=== PATIENT | male | born 1980 | race Caucasian/White ===

== ENCOUNTER 2018-02-13 09:05 | Emergency (ER) | payer SELFPAY ==
--- NOTE | 2018-02-13 09:24 | Emergency Department Record ---
History of Present Illness - General Chief Complaint: Abdominal Pain Stated Complaint: CHEST TIGHTNESS,ABD PAIN Time Seen by Provider: 02/13/18 09:20 Source: Patient Mode of Arrival: Ambulatory Limitations: No limitations - History of Present Illness Initial Comments: The patient is here due to developing LLQ severe AP with nausea about 2 hours ago. Shortly after he developed chest tightness with diaphoresis and mild SOB. The abdominal and chest symptoms have improved but are still present. The patient does have a hx of chronic AP and chronic diarrhea but has never had any specific illness or condition diagnosed. He has no hx of chest pain or tightness and has no hx of CP with exertion. The patient is a [employer] and his symptoms did start while flying. His only cardiac risk factor is a strong family hx of CAD with a brother dying of an FL at age 44. MD Complaint: Abdominal pain Onset/Timin -: Minutes(s) Location: Diffuse Radiation: Back Migration to: LLQ Severity scale (1-10): 9 Quality: Aching Consistency: Constant Improves With: Nothing Worsens With: Nothing Associated Symptoms: Nausea, Vomiting - Related Data Home Medications Medication Instructions Recorded Confirmed Last Taken Loperamide HCl [Loperamide] 2 mg PO DAILY 02/13/18 02/13/18 Unknown Allergies Allergy/AdvReac Type Severity Reaction Status Date / Time No Known Drug Allergies Allergy Verified 02/13/18 09:17 Travel Screening - Travel/Exposure Within Last 30 Days Have you traveled within the last 30 days?: No Review of Systems Constitutional: Denies: Chills, Fever Eyes: Denies: Eye discharge ENT: Denies: Congestion Respiratory: Denies: Cough, Dyspnea Cardiovascular: Reports: Chest pain. Denies: Arrhythmia, Dyspnea on exertion Endocrine: Denies: Fatigue Gastrointestinal: Reports: Abdominal pain, Diarrhea, Nausea. Denies: Vomiting Genitourinary: Denies: Dysuria Musculoskeletal: Reports: Back pain. Denies: Arthralgia Past Medical History - SOCIAL HISTORY Smoking Status: Never smoker Alcohol Use: None Drug Use: None - RESPIRATORY Hx Respiratory Disorders: No - CARDIOVASCULAR Hx Cardio Disorders: No - NEURO Hx Neuro Disorders: No - GI Hx GI Disorders: Yes Hx Abdominal Pain: Yes Hx Ulcer: Yes Comment:: daily diarrhea - Hx Genitourinary Disorders: No - ENDOCRINE Hx Endocrine Disorders: No - MUSCULOSKELETAL Hx Musculoskeletal Disorders: No - PSYCH Hx Psych Problems: No - HEMATOLOGY/ONCOLOGY Hx Hematology/Oncology Disorders: No Family Medical History Any Significant Family History?: Yes Hx Heart Disease: Father, Mother, Brother/Sister Physical Exam - General General Appearance: Alert, Oriented x3, Cooperative, No acute distress - Head Head exam: Atraumatic, Normocephalic, Normal inspection - Eye Eye exam: Normal appearance, PERRL - ENT Throat exam: Normal inspection. negative: Tonsillar erythema, Tonsillar exudate - Neck Neck exam: Normal inspection, Full ROM. negative: Tenderness - Respiratory Respiratory exam: Normal lung sounds bilaterally. negative: Respiratory distress - Cardiovascular Cardiovascular Exam: Regular rate, Normal rhythm, Normal heart sounds - GI/Abdominal GI/Abdominal exam: Soft, Normal bowel sounds, Tenderness (LLQ tenderness.) - Extremities Extremities exam: Normal inspection, Full ROM, Normal capillary refill. negative: Tenderness - Neurological Neurological exam: Alert. negative: Motor sensory deficit Course Vital Signs 02/13/18 09:18 Temperature 98.1 F Pulse Rate [ 64 Pulse Ox Probe] Respiratory 18 Rate Blood Pressure 130/84 [Left Arm] Pulse Ox 97 - Reevaluation(s) Reevaluation #1: The patient is resting comfortably in no distress. After delving into the patient's complaints further it appears the patient has been presenting to multiple hospitals with the same complaints. He was admitted to [facility] on 02/12/12 for the same issues, had a neg workup including an abdominal CT and then refused a stress test. He was then discharged from [facility] yesterday afternoon and then went to [facility] with the same complaints and and the same story. He was seen there last night around midnight in the ER and also had a neg workup including another abdominal CT with contrast that was neg. Now he came here this AM with the same story and complaints and denied being at the other two hospitals. I did confront the patient with these issues but he denied many facts. He states he had an EST at [facility] but I did contact the admitting physician at [facility] who stated the patient refused the test. The attending at [facility] Dr. Gould also states the patient's story did not add up also. Additionally he stated the patient was wearing hospital socks from another hospital when he presented there at [facility]. 02/13/18 10:43 Reevaluation #2: The patient again is resting comfortably and does not appear to be in any discomfort. Due to his previous complaints of CP and the fact he did not have an EST done at [facility] I did offer to transfer him back to [facility] for the test. I also did discuss the need for a possibly psychiatric consultation due to the recurrent presentations to the ER with the same story and complaints. The patient is refusing the tests and the plan for transfer. The patient then did state he would like to leave and not be transferred or stay here in the ER any longer. I explained to him that the risks of leaving are that the patient could leave and have an FL, stroke, become disabled and . The patient presently has proper decision making capacity and accepts the risks. He was told to see his PCP MAYKEL when he returns to home and to return to the ER for any problems. 02/13/18 11:02 Medical Decision Making - Data Complexity MDM Data: Labs Ordered and/or Reviewed, X-Ray Ordered and/or Reviewed, EKG Ordered and/or Reviewed - Lab Data Result diagrams: 02/13/18 09:25 02/13/18 09:25 - EKG Data -: EKG Interpreted by Me EKG: No Acute Changes, Normal EKG - Radiology Data Radiology results: Report reviewed (CXR: Neg Abd CT: prob Epiploic Appendigitis LLQ.) Disposition Disposition: Discharge Clinical Impression: Abdominal pain in male Disposition: Against Medical Advice Condition: (2) Stable Instructions: Abdominal Pain (ED) Additional Instructions: Please continue your regular medicines and use Tylenol for pain. Please return to the ER for any worsening pain, chest pain, shortness of breath or sweating. Please see your primary care doctor MAYKEL when you return home to [place]. Forms: Patient Portal Access Time of Disposition: 11:02 Quality - Quality Measures Quality Measures: N/A - Blood Pressure Screening View Details: Yes Does Patient Have Any of the Following: No Blood Pressure Classification: Pre-Hypertensive BP Reading Systolic Measurement: 130 Diastolic Measurement: 84 Screening for High Blood Pressure: < Pre-Hypertensive BP, F/U Documented > [ [id number]] Pre-Hypertensive Follow-up Interventions: Referral to alternative/primary care provider.
[2018-02-13] MEDS ORDERED: ASPIRIN 325 MG TABLET PO ONE (09:30)
[2018-02-13] MEDS ORDERED: ACETAMINOPHEN 1,000 MG/100 ML BTL IVPB ONE (09:31)
[2018-02-13 09:40] LABS: BASO % 0.3 % (0-6); EOS % 2.1 % (0-6); GRAN % 54.6 % (47-80); HEMATOCRIT 44.1 % (42.0-52.0); HEMOGLOBIN 13.8 gm/dl (14.0-18.0); LYMPH % 33.1 % (16-45); MEAN CELL VOLUME 91.9 fl (81-97); MEAN CORPUSCULAR HGB CONC 31.3 g/dl (32-36); MEAN PLATELET VOLUME 11.9 fl (7.4-10.4); MONO % 9.9 % (0-9); PLATELET COUNT 214 K/uL (130-400); RED CELL DISTRIBUTION WIDTH 13.9 % (11.5-14.5); WHITE BLOOD COUNT W/O DIFF 5.7 K/uL (4.2-12.2)
[2018-02-13 09:41] LABS: MEAN CORPUSCULAR HEMOGLOBIN 28.7 pg (27-33)
[2018-02-13 09:54] LABS: BLOOD UREA NITROGEN 11 mg/dL (6-20); CREATININE 0.9 mg/dL (0.7-1.2); EST GLOMERULAR FILTRATION RATE > 60 mL/min; PARTIAL THROMBOPLASTIN TIME 29.5 SECONDS (24.5-39.1); PROTHROMBIN TIME (PATIENT) 10.4 SECONDS (9.5-12.1)
[2018-02-13 09:55] LABS: TOTAL PROTEIN 7.2 g/dL (6.6-8.7)
[2018-02-13 09:55] LABS: URINE APPEARANCE CLEAR; URINE BILIRUBIN NEGATIVE (NEGATIVE); URINE BLOOD NEGATIVE (NEGATIVE); URINE COLOR YELLOW; URINE GLUCOSE (UA) NEGATIVE (NEGATIVE); URINE KETONE NEGATIVE (NEGATIVE); URINE LEUKOCYTE ESTERASE NEGATIVE (NEGATIVE); URINE NITRITE NEGATIVE (NEGATIVE); URINE PROTEIN NEGATIVE (NEGATIVE); URINE UROBILINOGEN 0.2 E.U./dL (0.20 - 1.00)
[2018-02-13 09:57] LABS: GLUCOSE,RANDOM 114 mg/dL (74-109)
[2018-02-13 10:00] LABS: ALB/GLOB RATIO 1.4 (1.1-1.8); ALBUMIN 4.2 g/dL (4.0-5.0); ALKALINE PHOSPHATASE 81 U/L (40-129); ALT/SGPT 45 U/L (<41); AST/SGOT 27 U/L (10.0-50.0); CREATINE PHOSPHOKINASE 78 U/L (39-308)
[2018-02-13 10:02] LABS: CKMB 1.2 ng/mL (<6.73)
--- NOTE | 2018-02-14 15:10 | RADIOLOGY REPORT ---
EXAM: CHEST, TWO VIEWS HISTORY: CHEST PAIN. TECHNIQUE: PA and lateral upright views of the chest were obtained. Comparison: None. FINDINGS: The heart, mediastinum, and pulmonary vasculature are normal. There are no acute infiltrates or effusions. There is no pneumothorax. The bones appear intact. IMPRESSION: NO ACUTE CHEST PATHOLOGY. JOB NUMBER: [id number] [facility]
--- NOTE | 2018-02-15 07:50 | CT SCAN REPORT ---
EXAM: CT SCAN OF THE ABDOMEN AND PELVIS WITHOUT CONTRAST HISTORY: LEFT LOWER QUADRANT ABDOMINAL PAIN. CHEST PAIN AND TIGHTNESS. DIFFICULTY BREATHING. TECHNIQUE: Standard CT imaging of the abdomen and pelvis was performed in the axial plane without contrast. Additional coronal and sagittal reformatted images were also performed. Comparison: None. FINDINGS: The lung bases are normal. The liver is unremarkable. The gallbladder is surgically absent. The biliary tree, pancreas, spleen, and adrenal glands are normal. Contrast material is present within the renal collecting systems and bladder from a recent CT study at an outside institution. The kidneys and ureters are otherwise unremarkable. The aorta is normal in caliber. There is no retroperitoneal lymphadenopathy. There is an oval focal area of fat stranding within the fat anterior and superior to the proximal sigmoid colon. This area measures 2.7 x 1.5 cm and is consistent with epiploic appendagitis. The bowel and mesentery are otherwise normal. There are no focal bowel inflammatory changes. There is no obstruction. There is no pneumoperitoneum or ascites. The urinary bladder is decompressed. Excreted contrast material is present. The prostate gland is nonenlarged. The abdominal wall is unremarkable. There are no acute osseous abnormalities. IMPRESSION: 1. FINDINGS CONSISTENT WITH EPIPLOIC APPENDAGITIS ADJACENT TO THE PROXIMAL SIGMOID COLON. 2. THE REMAINING PORTIONS OF THE ABDOMEN AND PELVIS ARE NORMAL. JOB NUMBER: [id number] [facility]
== END 2018-02-13 11:54 | disposition left against medical advice (07) ==
LOC: ER 09:05
DX: R10.32 Left lower quadrant pain (principal); R07.89 Other chest pain; R06.02 Shortness of breath; R11.0 Nausea
CPT/HCPCS: 71046; 74176; 80053; 81003; 82550; 82553; 83690; 84484; 85025; 85379; 85610; 85730; 93005; 93010; 96374; 99284